=== PATIENT | male | born 1995 | race Caucasian/White ===

== ENCOUNTER 2018-07-10 17:02 | Emergency (ER) | payer SELFPAY ==
[2018-07-10] MEDS: PENICILLIN G BENZ 2.4 MIL UNIT SYG IM (18:36)
[2018-07-11 16:06] LABS: RAPID PLASMA REAGIN REACTIVE (NR)
[2018-07-13 14:37] LABS: FLUORESCENT TREPONEMAL AB REACTIVE (NON-REACTIVE)
== END 2018-07-10 19:05 | disposition home or self-care (01) ==
LOC: FTE 17:02
DX: A53.9 Syphilis, unspecified (principal)
CPT/HCPCS: 86592; 87285; 96372; 99284-25

== ENCOUNTER 2018-07-17 08:12 | Emergency (ER) | payer SELFPAY ==
[2018-07-17] MEDS: PENICILLIN G BENZ 2.4 MIL UNIT SYG IM (09:07)
[2018-07-17 10:39] LABS: HEPATITIS B SURFACE ANTIGEN NEGATIVE (NEGATIVE)
[2018-07-17 10:56] LABS: HEPATITIS B SURFACE ANTIBODY NEGATIVE (NEGATIVE)
[2018-07-17 10:56] LABS: HEPATITIS C VIRAL ANTIBODY NEGATIVE (NEGATIVE); HIV 1&2 ANTIBODY NEGATIVE (NEGATIVE)
[2018-07-17 15:25] LABS: RAPID PLASMA REAGIN REACTIVE (NR)
[2018-07-19 15:46] LABS: FLUORESCENT TREPONEMAL AB REACTIVE (NON-REACTIVE)
== END 2018-07-17 09:23 | disposition left against medical advice (07) ==
LOC: FTE 09:23
DX: A53.9 Syphilis, unspecified (principal)
CPT/HCPCS: 36415; 86592; 86703; 86706; 86803; 87340; 96372; 99284-25

== ENCOUNTER 2018-07-24 12:17 | Emergency (ER) | payer SELFPAY ==
[2018-07-24] MEDS: PENICILLIN G BENZ 2.4 MIL UNIT SYG IM (13:32)
== END 2018-07-24 13:45 | disposition home or self-care (01) ==
LOC: FTE 12:17
DX: A52.9 Late syphilis, unspecified (principal)
CPT/HCPCS: 96372; 99284-25